=== PATIENT | male | born 1955 | race Two or more races ===

== ENCOUNTER 2022-08-27 16:45 | Emergency (ER) | payer OTHER ==
[~2022-08-27] VITALS: Ht 170.2 cm; Wt 85.9 kg
[2022-08-27 19:07] VITALS: BP 180/77
[2022-08-27 19:40] LABS: Urine Bacteria NONE SEEN /hpf (None Seen); Urine Blood Negative /uL (Negative); Urine Hyaline Cast FEW /lpf (0 - 2); Urine Specific Gravity 1.032 (1.001-1.035); Urine WBC 4 /hpf (0 - 3)
[2022-08-27] MEDS ORDERED: LEVO-28 PO (20:11)
== END 2022-08-27 20:25 | disposition home or self-care (01) ==
LOC: ER 16:45
DX: N45.1 Epididymitis (principal); E11.9 Type 2 diabetes mellitus without complications; E78.5 Hyperlipidemia, unspecified; Z90.49 Acquired absence of other specified parts of digestive tract; Z88.6 Allergy status to analgesic agent
CPT/HCPCS: 76870; 81001

== ENCOUNTER 2024-02-13 01:42 | Inpatient (IN) | payer OTHER ==
[~2024-02-13] VITALS: Ht 170.2 cm; Wt 72.0 kg
[~2024-02-13 01:42] MED LIST: LEVO500T91 PO
[2024-02-14] VITALS (8 sets, daily range): BP systolic 135–160; BP diastolic 59–75; PULSE 85–94; RESP 16–20; TEMP 97.7–98.6; O2SAT 95–97
[2024-02-14] MEDS ORDERED: FAMO-12 PO (06:00)
[2024-02-14] MEDS ORDERED: FLUC200T50 PO (06:00)
[2024-02-14] MEDS ORDERED: EMPA1TAB PO (06:00)
[2024-02-14] MEDS ORDERED: ABAC1TAB3 PO (06:00)
[2024-02-14] MEDS ORDERED: GABA-1308 PO (06:02)
[2024-02-14] MEDS ORDERED: PPN PER PHARMACY 0 ML IV SCH (06:15)
[2024-02-14] MEDS ORDERED: HYDROcodone-ACET 5/325MG TAB PO PRN (06:15)
[2024-02-14] MEDS ORDERED: DEXTROSE (50%) 50ML SYRG IV PRN ×2 (06:15→16:15)
[2024-02-14] MEDS ORDERED: CLINIMIX PER PHARMACY 0 ML IV SCH (06:15)
[2024-02-14] MEDS ORDERED: MORPHINE SULFATE INJ 2 MG/ml SYRG IV PRN (06:15)
[2024-02-14] MEDS ORDERED: ONDANSETRON HCL 4 MG/2 ML VIAL IV PRN (06:15)
[2024-02-14] MEDS ORDERED: TEMAZEPAM 15 MG CAP PO PRN (06:15)
[2024-02-14] MEDS ORDERED: NITROGLYCERIN 0.4 MG SL TAB SL PRN (06:15)
[2024-02-14] MEDS: ACETAMINOPHEN 325 MG TAB PO PRN (07:06)
[2024-02-14] MEDS: ACCU-CHEK COMFORT CURVE STRIP VI SCH ×2 (07:08→17:32)
[2024-02-14] MEDS: InsuLIN REG 1unit/0.01ml Soln (100units/ml) SC SCH ×2 (07:10→18:58)
[2024-02-14] MEDS: INSULIN LANTUS (GLARGINE) 1 /0.01ml (100units/ml) SC SCH ×3 (07:10→22:38)
[2024-02-14] MEDS: ENOXAPARIN SOD 40 MG/0.4 ML SYRINGE SC SCH (09:50)
[2024-02-14] MEDS ORDERED: GEMFIBROZIL 600 MG TAB PO SCH (10:00)
[2024-02-14 10:44] LABS: Basophils # (auto) 0.1 10 ^3/uL (0-0.2); Basophils % (auto) 0.6 % (0.0-2.0); Eosinophils # (auto) 0.2 10 ^3/uL (0-0.8); Eosinophils % (auto) 2.1 % (0.0-7.0); Lymphocytes # (auto) 0.7 10 ^3/uL (0.4-5.4); Lymphocytes % (auto) 7.3 % (10.0-50.0); Mean Corpuscular Hemoglobin 27.3 pg (28.0-32.0); Mean Corpuscular Hgb Conc. 32.2 g/dL (32.0-36.0); Mean Corpuscular Volume 84.8 fL (80.0-100.0); Monocytes # (auto) 0.4 10 ^3/uL (0-1.3); Neutrophils # (auto) 8.7 10 ^3/uL (1.6-8.6); Nucleated Red Blood Cells % 0.1 %; Platelet Count (auto) 173 10^3/uL (140-450); Red Blood Cells 3.66 10^6/uL (4.5-5.90); Red Cell Distribution Width 14.1 % (11.8-14.3); White Blood Cell 10.1 10^3/uL (4.4-10.8)
[2024-02-14 11:02] LABS: Alanine Aminotransferase 22 U/L (7-40); Albumin 3.1 g/dL (3.2-4.8); Alkaline Phosphatase 643 U/L (46-116); Anion Gap 10 (5-15); Aspartate Aminotransferase 30 U/L (13-40); BUN/Creatinine Ratio 19.7 (10.0-20.0); Bilirubin, Total 1.1 mg/dL (0.2-1.0); Blood Urea Nitrogen 14 mg/dL (9-23); Calcium 8.6 mg/dL (8.7-10.4); Carbon Dioxide 18 mmol/L (20-30); Chloride 108 mmol/L (98-107); Glucose 232 mg/dL (74-106); Lipase 85 U/L (12-53); Potassium 3.4 mmol/L (3.5-5.1); Sodium 136 mmol/L (136-145)
[2024-02-14] MEDS ORDERED: GEMF-66 PO (11:15)
[2024-02-14] MEDS ORDERED: IBUP-1456 PO (11:15)
[2024-02-14] MEDS ORDERED: LISI20TA56 PO (11:15)
[2024-02-14] MEDS ORDERED: ATEN-60 PO (11:15)
[2024-02-14] MEDS ORDERED: OMEP20TA PO (11:15)
[2024-02-14] MEDS ORDERED: ALBU2TAB11 INH (11:15)
[2024-02-14] MEDS ORDERED: ALPR0.5T7 PO (11:20)
[2024-02-14 11:42] LABS: Triglycerides 283 mg/dL (< 150)
[2024-02-14] MEDS: MORPHINE SULFATE INJ 2 MG/ml SYRG IV PRN (13:24)
[2024-02-14] MEDS ORDERED: SODIUM CHLORIDE 0.9% 1,000 ML IV SCH (13:45)
[2024-02-14] MEDS ORDERED: hydrALAZINE HCL 20 MG/ML VL IV PRN (16:30)
[2024-02-14] MEDS: PANTOPRAZOLE 40 MG/10 ML VIAL INJ IV ONE (18:30)
[2024-02-14] MEDS: LACTATED RINGER'S 1,000 ML IV SCH (18:30)
[2024-02-14] MEDS: POTASSIUM CHL 20MEQ/100ML 100 ML IV ONE (18:30)
[2024-02-14 19:39] LABS: INR 0.94 (0.9-1.15); Partial Thromboplastin Time 33.9 SEC (24.5-34.5)
[2024-02-14] MEDS ORDERED: ATORVASTATIN 20 MG TAB PO SCH (22:00)
[2024-02-14] MEDS ORDERED: INSULIN LANTUS (GLARGINE) 1 /0.01ml (100units/ml) SC SCH (22:00)
[2024-02-14] MEDS: POTASSIUM CHLORIDE 20 MEQ, LIDOCAINE 1% (LOCAL ANESTH.) 2 ML in SODIUM CHL 0.9% 100 ML IV ONE (22:16)
[2024-02-14] MEDS: LISINOPRIL 20 MG TAB PO ONE (22:17)
[2024-02-14] MEDS: HYDROmorphone HCL 2 MG/ML VL/or syr IV PRN (22:18)
[2024-02-15] VITALS (8 sets, daily range): BP systolic 133–162; BP diastolic 62–79; PULSE 78–90; RESP 17–21; TEMP 97.4–98.2; O2SAT 95–97
[2024-02-15 07:08] LABS: Basophils # (auto) 0 10 ^3/uL (0-0.2); Basophils % (auto) 0.4 % (0.0-2.0); Eosinophils # (auto) 0.2 10 ^3/uL (0-0.8); Eosinophils % (auto) 2.3 % (0.0-7.0); Hematocrit 28.2 % (41.0-53.0); Hemoglobin 9.2 g/dL (13.5-17.5); Lymphocytes # (auto) 0.7 10 ^3/uL (0.4-5.4); Lymphocytes % (auto) 7.4 % (10.0-50.0); Mean Corpuscular Hemoglobin 27.3 pg (28.0-32.0); Mean Corpuscular Hgb Conc. 32.5 g/dL (32.0-36.0); Mean Corpuscular Volume 84.2 fL (80.0-100.0); Monocytes # (auto) 0.5 10 ^3/uL (0-1.3); Monocytes % (auto) 5.8 % (0.0-12.0); Neutrophils # (auto) 7.9 10 ^3/uL (1.6-8.6); Neutrophils % (auto) 84.1 % (37.0-80.0); Platelet Count (auto) 171 10^3/uL (140-450); Red Blood Cells 3.35 10^6/uL (4.5-5.90); Red Cell Distribution Width 13.7 % (11.8-14.3); White Blood Cell 9.4 10^3/uL (4.4-10.8)
[2024-02-15 07:09] LABS: Anion Gap 9 (5-15); Carbon Dioxide 20 mmol/L (20-30); Chloride 108 mmol/L (98-107); Potassium 3.1 mmol/L (3.5-5.1); Sodium 137 mmol/L (136-145)
[2024-02-15 07:10] LABS: Calcium 8.7 mg/dL (8.7-10.4)
[2024-02-15 07:15] LABS: BUN/Creatinine Ratio 16.1 (10.0-20.0); Blood Urea Nitrogen 10 mg/dL (9-23); Glucose 193 mg/dL (74-106)
[2024-02-15] MEDS: PANTOPRAZOLE 40 MG/10 ML VIAL INJ IV SCH (09:53)
[2024-02-15] MEDS: LACTATED RINGER'S 1,000 ML IV SCH (09:53)
[2024-02-15] MEDS: ATENOLOL 25 MG TAB PO ONE (09:54)
[2024-02-15] MEDS: POTASSIUM CHLORIDE 40 MEQ, LIDOCAINE 1% (LOCAL ANESTH.) 4 ML in SODIUM CHL 0.9% 250 ML IV ONE (10:14)
[2024-02-15 11:46] LABS: Urine Bacteria FEW /hpf (None Seen); Urine Blood 1+ /uL (Negative); Urine Clarity Clear (Clear); Urine Color Light-Yellow (Yellow); Urine Protein, UAD 2+ (Negative); Urine Urobilinogen Normal (Negative); Urine WBC 1 /hpf (0 - 3)
[2024-02-15 11:52] LABS: Amphetamine Screen, Urine Neg (NEGATIVE); Barbiturate Scree,Urine Neg (NEGATIVE); Benzodiazephine Screen, Urine Neg (NEGATIVE); Cocaine Screen, Urine Neg (NEGATIVE)
[2024-02-15 11:53] LABS: Cannabinoid Screen, Urine Neg (NEGATIVE); Opiate Scree,Urine Neg (NEGATIVE); Phencyclidine Screen, Urine Neg (NEGATIVE)
[2024-02-15] MEDS: hydrALAZINE HCL 20 MG/ML VL IV PRN (14:38)
[2024-02-16] VITALS (9 sets, daily range): BP systolic 134–162; BP diastolic 50–90; PULSE 75–79; RESP 18–20; TEMP 97.6–98.9; O2SAT 94–98
[2024-02-16 08:19] LABS: Chloride 107 mmol/L (98-107); Potassium 3.6 mmol/L (3.5-5.1); Sodium 137 mmol/L (136-145)
[2024-02-16 08:20] LABS: Anion Gap 8 (5-15); Carbon Dioxide 22 mmol/L (20-30)
[2024-02-16 08:21] LABS: Calcium 8.8 mg/dL (8.7-10.4)
[2024-02-16 08:25] LABS: BUN/Creatinine Ratio 14.5 (10.0-20.0); Blood Urea Nitrogen 11 mg/dL (9-23); Glucose 260 mg/dL (74-106)
[2024-02-16 08:31] LABS: Basophils # (auto) 0 10 ^3/uL (0-0.2); Basophils % (auto) 0.7 % (0.0-2.0); Eosinophils # (auto) 0.2 10 ^3/uL (0-0.8); Eosinophils % (auto) 2.8 % (0.0-7.0); Hematocrit 27.4 % (41.0-53.0); Hemoglobin 8.9 g/dL (13.5-17.5); Lymphocytes # (auto) 0.8 10 ^3/uL (0.4-5.4); Lymphocytes % (auto) 11.5 % (10.0-50.0); Mean Corpuscular Hemoglobin 27.1 pg (28.0-32.0); Mean Corpuscular Hgb Conc. 32.4 g/dL (32.0-36.0); Mean Corpuscular Volume 83.8 fL (80.0-100.0); Monocytes # (auto) 0.4 10 ^3/uL (0-1.3); Monocytes % (auto) 5.9 % (0.0-12.0); Neutrophils # (auto) 5.2 10 ^3/uL (1.6-8.6); Neutrophils % (auto) 79.1 % (37.0-80.0); Nucleated Red Blood Cells % 0.1 %; Platelet Count (auto) 161 10^3/uL (140-450); Red Blood Cells 3.27 10^6/uL (4.5-5.90); Red Cell Distribution Width 13.6 % (11.8-14.3); White Blood Cell 6.6 10^3/uL (4.4-10.8)
[2024-02-16 08:53] LABS: Hepatitis B Surface Antigen Negative (Negative)
[2024-02-16 09:15] LABS: Hepatitis C Antibody Negative (Negative)
[2024-02-16 14:04] LABS: Lipase 92 U/L (12-53)
[2024-02-16] MEDS ORDERED: INSULIN LANTUS (GLARGINE) 1 /0.01ml (100units/ml) SC SCH (22:00)
[2024-02-16] MEDS: INSULIN LANTUS (GLARGINE) 1 /0.01ml (100units/ml) SC SCH (22:51)
[2024-02-17 01:00] VITALS: BP 162/73; PULSE 77; RESP 17; TEMP 97.7; O2SAT 97
[2024-02-17 05:00] VITALS: BP 126/59; PULSE 72; RESP 18; TEMP 97.7; O2SAT 95
[2024-02-17 06:02] LABS: Basophils # (auto) 0.1 10 ^3/uL (0-0.2); Basophils % (auto) 1.2 % (0.0-2.0); Eosinophils # (auto) 0.2 10 ^3/uL (0-0.8); Eosinophils % (auto) 4.4 % (0.0-7.0); Hematocrit 24.1 % (41.0-53.0); Lymphocytes # (auto) 0.8 10 ^3/uL (0.4-5.4); Lymphocytes % (auto) 16.5 % (10.0-50.0); Mean Corpuscular Hemoglobin 27.9 pg (28.0-32.0); Mean Corpuscular Hgb Conc. 33.1 g/dL (32.0-36.0); Mean Corpuscular Volume 84.2 fL (80.0-100.0); Monocytes # (auto) 0.4 10 ^3/uL (0-1.3); Monocytes % (auto) 8.1 % (0.0-12.0); Neutrophils # (auto) 3.2 10 ^3/uL (1.6-8.6); Neutrophils % (auto) 69.8 % (37.0-80.0); Nucleated Red Blood Cells % 0.2 %; Platelet Count (auto) 185 10^3/uL (140-450); Red Blood Cells 2.86 10^6/uL (4.5-5.90); Red Cell Distribution Width 13.5 % (11.8-14.3); White Blood Cell 4.6 10^3/uL (4.4-10.8)
[2024-02-17 06:13] LABS: Anion Gap 5 (5-15); Carbon Dioxide 24 mmol/L (20-30); Chloride 107 mmol/L (98-107); Potassium 2.8 mmol/L (3.5-5.1); Sodium 136 mmol/L (136-145)
[2024-02-17 06:15] LABS: Calcium 8.8 mg/dL (8.7-10.4)
[2024-02-17 06:19] LABS: Glucose 218 mg/dL (74-106)
[2024-02-17 06:20] LABS: Blood Urea Nitrogen 9 mg/dL (9-23)
[2024-02-17] MEDS ORDERED: DEXTROSE (50%) 50ML SYRG IV PRN (06:45)
[2024-02-17] MEDS: ACCU-CHEK COMFORT CURVE STRIP VI SCH (07:00)
[2024-02-17] MEDS: InsuLIN REG 1unit/0.01ml Soln (100units/ml) SC SCH (07:00)
[2024-02-17 09:08] VITALS: BP 154/62; PULSE 76; RESP 16; TEMP 98; O2SAT 96
[2024-02-17] MEDS: POTASSIUM CHLORIDE 60 MEQ, LIDOCAINE 1% (LOCAL ANESTH.) 6 ML in SODIUM CHL 0.9% 500 ML IV ONE (09:16)
[2024-02-17 12:50] VITALS: BP 131/53; PULSE 80; RESP 16; TEMP 97.9; O2SAT 96
[2024-02-17] MEDS ORDERED: InsuLIN REG 1unit/0.01ml Soln (100units/ml) SC SCH (22:00)
[2024-02-17] MEDS ORDERED: INSULIN LANTUS (GLARGINE) 1 /0.01ml (100units/ml) SC SCH (22:00)
== END 2024-02-17 13:40 | disposition left against medical advice (07) | DRG 435 ==
LOC: WEST WING 02-14 04:44 → TELE-WESTW 02-14 06:56 → WEST WING 02-15 07:51
PROVIDERS: ADMIT Internal Medicine; ATTEND Internal Medicine
DX: C25.9 Malignant neoplasm of pancreas, unspecified (principal); K85.90 Acute pancreatitis without necrosis or infection, unspecified; K86.3 Pseudocyst of pancreas; E78.1 Pure hyperglyceridemia; E11.9 Type 2 diabetes mellitus without complications; Z83.3 Family history of diabetes mellitus; Z82.49 Family history of ischemic heart disease and other diseases of the circulatory system; Z79.1 Long term (current) use of non-steroidal anti-inflammatories (NSAID); Z79.899 Other long term (current) drug therapy
CPT/HCPCS: 36415; 74176; 74181; 76700; 80048; 80053; 80307; 80320; 81001; 82962; 82977; 83036; 83690; 84478; 85025; 85610; 85730; 86301; 86803; 87340; G0378; J1815; J2001; J2470; J3480